=== PATIENT | male | born 1990 | race Caucasian/White ===

== ENCOUNTER 2019-06-26 19:09 | Emergency (ER) | payer OTHER, BC ==
[~2019-06-26] VITALS: Ht 175.3 cm; Wt 125.0 kg
[~2019-06-26 19:09] MED LIST: MEDDOSEPAK PO; PROAIR HFA IN; no meds
[2019-06-26 20:30] VITALS: BP 128/63
== END 2019-06-26 20:30 | disposition home or self-care (01) | DRG 605 ==
LOC: ED 19:09
DX: S60.032A Contusion of left middle finger without damage to nail, initial encounter (principal); F17.210 Nicotine dependence, cigarettes, uncomplicated; W23.0XXA Caught, crushed, jammed, or pinched between moving objects, initial encounter; Y93.89 Activity, other specified; Y92.69 Other specified industrial and construction area as the place of occurrence of the external cause; Y99.0 Civilian activity done for income or pay

== ENCOUNTER 2021-12-18 10:04 | Emergency (ER) | payer SELFPAY ==
[2021-12-18] VITALS (8 sets, daily range): BP systolic 116–135; BP diastolic 61–81
[~2021-12-18] VITALS: Ht 175.3 cm; Wt 125.0 kg
[2021-12-18 12:47] LABS: HEMATOCRIT 43.7 % (39.0-50.0); HEMOGLOBIN 14.1 g/dl (14.0-18.0); IMMATURE GRANULOCYTES 0.3 % (0.0-5.0); MEAN CORPUSCULAR HGB CONC 32.3 g/dL CAL (32.0-36.0); NEUT# 4.98 thou/uL (1.82-7.42); RED BLOOD COUNT 4.55 mill/uL (4.70-6.10); RED CELL DISTRI WIDTH 12.3 % (11.5-15.5)
[2021-12-18 12:52] LABS: ALKALINE PHOSPHATASE 57 u/l (38-126); ANION GAP 15 (6-22 (CALC)); BILIRUBIN, TOTAL 0.3 mg/dL (0.0-1.4); BUN 10 mg/dL (9-20); BUN/CREATININE RATIO 9 (12-20 (CALC)); CARBON DIOXIDE 24 mmol/l (22-30); CHLORIDE 106 mmol/l (95-108); CREATININE 1.2 mg/dL (0.7-1.3); GFR FOR AFR.AMER. > 60 ML/MIN (>=60 (CALC)); GFR OTHER RACES > 60 ML/MIN (>=60 (CALC)); POTASSIUM 4.3 mmol/l (3.5-5.1); SGOT/AST 22 u/l (17-59); SODIUM 141 mmol/l (137-146); TOTAL PROTEIN 7.3 g/dL (6.3-8.2)
[2021-12-18] MEDS ORDERED: ONDANSETRON4 MG PO (13:57)
== END 2021-12-18 14:35 | disposition home or self-care (01) | DRG 392 ==
LOC: ED 10:04
PROVIDERS: Nurse Practitioner
DX: R11.2 Nausea with vomiting, unspecified (principal); J45.909 Unspecified asthma, uncomplicated; F17.290 Nicotine dependence, other tobacco product, uncomplicated; Z20.822 Contact with and (suspected) exposure to COVID-19

== ENCOUNTER 2022-11-05 11:41 | Emergency (ER) | payer SELFPAY ==
[~2022-11-05] VITALS: Ht 175.3 cm; Wt 111.0 kg
[~2022-11-05 11:41] MED LIST changes: +ONDANSETRON4 MG PO
[2022-11-05 11:58] VITALS: BP 117/70
[2022-11-05 12:01] VITALS: BP 128/56
[2022-11-05] MEDS ORDERED: KEFLEX500 MG PO (13:27)
[2022-11-05 14:05] VITALS: BP 128/56
== END 2022-11-05 14:17 | disposition home or self-care (01) | DRG 914 ==
LOC: ED 11:41
DX: S61.247A Puncture wound with foreign body of left little finger without damage to nail, initial encounter (principal); J45.909 Unspecified asthma, uncomplicated; F17.200 Nicotine dependence, unspecified, uncomplicated; W45.8XXA Other foreign body or object entering through skin, initial encounter; Y93.89 Activity, other specified; Y92.89 Other specified places as the place of occurrence of the external cause; Y99.0 Civilian activity done for income or pay